=== PATIENT | female | born 1950 | race Caucasian/White ===

== ENCOUNTER 2017-10-28 06:26 | Inpatient (IN) | payer BC ==
[2017-10-16 09:12] LABS: ABSOLUTE EOSINOPHILS 0.1 thou/uL (0.0-0.7); ABSOLUTE LYMPHOCYTES 2.4 thou/uL (0.8-5.3); ABSOLUTE MONOCYTES 0.5 thou/uL (0.0-1.2); ABSOLUTE NEUTROPHILS 3.9 thou/uL (1.6-8.1); BASOPHILS 0.6 %; EOSINOPHILS 1.2 %; HEMATOCRIT 48.6 % (37.0-47.0); HEMOGLOBIN 16.2 gm/dL (12.0-15.0); LYMPHOCYTES 34.1 %; MCH 29.5 pg (26.0-34.0); MCHC 33.3 g/dL (28.0-37.0); MCV 88.4 fL (80.0-100.0); MONOCYTES 7.1 %; MPV 8.5 fl. (7.2-11.1); NUCLEATED RBCS 0 /100WBC; PLATELET COUNT* 226 thou/uL (150-400); RDW-CV 14.6 % (10.5-14.5); WBC 6.9 thou/uL (4.0-11.0)
[2017-10-16 09:39] LABS: ALBUMIN 3.9 g/dL (3.4-5.0); CALCIUM 9.3 mg/dL (8.5-10.1); CREATININE 0.8 mg/dL (0.6-1.3); POTASSIUM 3.8 mmol/L (3.5-5.1); TOTAL BILIRUBIN 0.7 mg/dL (<0.1-1.0); TOTAL PROTEIN 7.3 g/dL (6.4-8.2)
--- NOTE | 2017-10-16 11:33 | EKG ---
[place] [address] ELECTROCARDIOGRAM REPORT Name: ELIER TRAN Room: PRE IN [facility]#: [id number] Admission: Attend Phys: Nuno Barillas Discharge: Date of : 54 Report #: [id number] THIS REPORT FOR: //name// [facility] Test Date: 2017-10-16 Test Time: 09:27:16 Pat Name: ELIER TRAN Department: Room: Gender: F Email Marketing Processor: : 1950 Requested By: Lawrence Pierce Order Number: [id number] Reading MD: Kristian Rios Measurements Intervals [place] Rate: 80 P: 64 WA: 136 QRS: 48 QRSD: 85 T: 51 QT: 346 QTc: 400 Interpretive Statements Sinus rhythm Probable left atrial enlargement Compared to ECG 09/19/2016 10:11:03 No significant changes Electronically Signed On 10-16-2017 11:33:05 CDT by Kristian Rios [email or web address] <ELECTRONICALLY SIGNED> By: Kristian Rios MD, LOCATED WITHIN [facility] 10/16/17 1133 0927 09 Kristian Rios MD, FACC /EPI
[2017-10-17 02:06] LABS: GLYCOHEMOGLOBIN (HGB A1C) 5.4 % (4.8-5.6)
[~2017-10-28] VITALS: Ht 160 cm; Wt 75.7 kg
[~2017-10-28 06:26] MED LIST: ASPIRIN325 PO; C-10001000 M1 PO; CAL MAG ZINC +1 EAC1 PO; CEPHALEXIN 500500 M3 PO; COLACE100 MG PO; DILTIAZEM ER120 M1 PO; FISH OIL 1,001000 M1 PO; HYDROCODONE-AP1 EAC6 PO; METOPROLOL SUCC25 M1 PO; MULTIVITAMINS1 EAC7 PO; NEURONTIN 300300 M1 PO; NORCO 5-325 TA1 EACH PO; NORTRIPTYLINE H10 M1; OXYCODONE HCL 55 MG PO; PERCOCET 5-3251 EACH PO; PERCOCET PO; PRAVACHOL40 MG PO; PRILOSEC 20 MG20 MG PO; RESTASIS1 EACH OP; RESTASIS1 EACH OPHTHALMIC; STOOL SOFTENER1 EAC2 PO; TOPAMAX 25 MG T25 M1 PO; VENTOLIN HFA 1818 GM INH; XARELTO10 MG PO; ZANTAC 150MG T150 MG PO
[2017-10-28 12:35] VITALS: BP 139/85
[2017-10-28 15:40] VITALS: BP 147/81
--- NOTE | 2017-10-28 15:43 | NUR ---
RECIEVED O.T. ORDERS. WILL DEFER TO P.T. AND NURSING AT THIS TIME. PLEASE ORDER FURTHER O.T. SERVICES IF NEEDED.
[2017-10-28 16:02] VITALS: BP 136/49
[2017-10-28 16:20] VITALS: BP 147/81
--- NOTE | 2017-10-28 18:21 | NUR ---
PATIENT ARRIVED TO UNIT AT 1540. ALERT AND ORIENTED X4. IV PATENT AND INFUSING. REQUESTING PAIN MEDICATION UPON ARRIVAL TO UNIT. PO PAIN MEDICATION GIVEN. JING HOSE IN PLACE BILATERALLY. ICE PACKS IN PLACE. CAP-NO IN PLACE. PATIENT HAS BEEN ORIENTED TO ROOM. VSS ON ROOM AIR. HOURLY ROUNDS HAVE BEEN MAINTAINED THROUGHOUT SHIFT. CALL LIGHT IS WITHIN REACH. NURSING WILL CONTINUE TO MONITOR.
--- NOTE | 2017-10-28 18:29 | NUR ---
ALERT AND ORIENTED X4. IV IS PATENT AND INFUSING. PAIN BEING MANAGED WITH PO PAIN MEDICATION. DENIES NAUSEA AT THIS TIME. JING HOSE IN PLACE. CAP-NO IN PLACE. URINATING VIA BEDPAN AT THIS TIME. ICE PACKS IN PLACE. DRESSING C/D/I. VSS ON ROOM AIR. HOURLY ROUNDS HAVE BEEN MAINTAINED THROUGHOUT SHIFT. CALL LIGHT IS WITHIN REACH. NURSING WILL CONTINUE TO MONITOR.
[2017-10-28 20:00] VITALS: BP 142/74
[2017-10-29] VITALS: BP 141/69
[2017-10-29 04:33] VITALS: BP 124/59
[2017-10-29 04:56] LABS: HEMATOCRIT 41.5 % (37.0-47.0); HEMOGLOBIN 13.7 gm/dL (12.0-15.0)
--- NOTE | 2017-10-29 05:24 | NUR ---
ASSESSMENT COMPLETE. PT SLEPT GOOD THROUGH THE NIGHT. PRN PAIN MEDICATION GIVEN NEEDED. DRESSING INTACT. PT HAD JING HOSE ON BILAT LEGS WITH FOOT SCD'S. ICE PACK TO LEFT LEG. IV CEFAZOLIN GIVEN ORDERED. PT USES BEDPAN. IV FLUIDS INFUSING. SEE ASSESSMENT AND VITALS FOR OTHER DETAILS. CALL LIGHT WITHIN REACH, WILL CONTINUE PLAN OF CARE
--- NOTE | 2017-10-29 08:03 | OP ---
[address] [address] OPERATIVE REPORT Name: ELIER TRAN Room: [address] [facility].R.#: [id number] Admission: 10/28/17 Attend Phys: Nuno Barillas Discharge: Date of : 54 Report #: [id number] THIS REPORT FOR: //name// CC: Lawrence Bello DATE OF SERVICE: 10/28/2017 PREOPERATIVE DIAGNOSIS: Severe left tricompartmental osteoarthritis of the knee. POSTOPERATIVE DIAGNOSIS: Severe left tricompartmental osteoarthritis of the knee. SURGERY PERFORMED: Kierra cemented left total knee arthroplasty, size 5 femur, size D tibia, 14 mm polyethylene and 32 mm patella medial congruent. SURGEON: Lawrence Pierce DO. SIDING MECHANIC: Reynaldo Pimentel DO. SECOND STRAW HAT WASHER OPERATOR: Rolando Adhikari DO. ANESTHESIA: General anesthetic and an adductor block. ANTIBIOTICS: The patient did receive Ancef 2 grams IV preoperatively. DRAINS: None. COMPLICATIONS: None. ESTIMATED BLOOD LOSS: 125 mL. GROSS FINDINGS: Prior to surgery, this patient has failed all conservative care measures for osteoarthritis of her knee. The patient intraoperatively, the exam of the bone quality correlated with the x-ray findings, the severe tricompartmental osteoarthritis with eburnated bone multiple osteophytes throughout. Post-placement of that total knee, she had a full stable arc of motion. The patient's motion is 0-120. SURGERY IN DETAIL: The patient was taken to the operating room and placed on the table, given the benefit of a general anesthetic and prior to that preoperative holding, she had an adductor block applied. She underwent Hibiclens scrub and chlorhexidine prep and sterile draping for left knee surgery. Timeout was called and verified to be on her [place] [address] OPERATIVE REPORT Name: ELIER TRAN Room: [address] IN [facility].#: [id number] Admission: 10/28/17 Attend Phys: Nuno Barillas Discharge: Date of : 54 Report #: [id number] The patient surgery began without a tourniquet and I did not inflate tourniquet until we cemented. A midline incision was made with a 10 blade scalpel through skin and subcutaneous tissues, maintaining hemostasis throughout. A second medial parapatellar capsular incision was made next. The patient's patella was everted, knee flexed 90 degrees. Excess osteophytes were removed throughout. Distal femoral drill hole was made in routine fashion. I did go ahead now and after I drilled the femur, a cutting block was applied. The distal cut was made to femur. I did do a 5-degree cut on that femur. I went down to the tibia next using an external guide across the ankle and proximally. With appropriate slope, the cutting block was secured in place and the tibia was cut and a block of bone was removed. The extension block fit quite nicely. Surgery now continued going back to the femoral side where I sized it. It looked like a #5 would be right. We put in a #5 block and made all cuts, the 4-in-1 block and made all cuts. Once this was accomplished, I went down to the tibia side, did remove the excess meniscus on each side to maintain hemostasis to the posterior corners. Sized the tibia to size #D, that tray was secured in place with screws, put the femur in place the #5, did a trial reduction with a 10-mm polyethylene. It fit easily. Surgery continued with drilling the distal femur. We would take in the end of the standard femur size. At this point in time, I used the Kierra reamer to appropriately ream the patella and size it to a 32. The patella was appropriately drilled and the button was applied and it actually did very well through the arc of motion, stable, tracking nicely. Once this was accomplished, I went back to remove the trial 10 and removed the distal femur. I removed patellar button and I Esmarch the extremity and inflated the tourniquet 300 mmHg, appropriately reamed and a cruciform cut was made in the tibia, that trial tray was now removed preparing for cement technique. At this point in time, pulsatile lavage irrigation was next done to prepare the bone for cementing. I did a 1-stage cementing technique, cemented in the tibia, removed excess cement, cemented on the femur, removed the excess cement, compressed her with a 13-mm trial polyethylene and cemented in the patella. We held the leg in extension until cement had hardened. At this point in time, I went ahead and I did 1 more trial reduction with a 14. It actually was more stable yet, so that would be the final polyethylene. At this point in time, I did a pulsatile lavage irrigation of knee, removed any excess debris that might be present within the knee region. I did go ahead and put the polyethylene E liner and seated into the tibia tray with a click noted. The leg was reduced and the leg was placed through motion with a stable arc of motion 0-120. At this point in time, I did a Betadine wash followed with a normal saline wash and TXA solution to the knee. I released the tourniquet and hemostasis was easily maintained. I closed the capsule #1 Vicryl, #1 TiCron [id number] fashion, subcutaneous tissues 2-0 Monocryl followed with stapling of the skin. Mepilex dressing was applied, jackson escalante. She was transferred to the table, [place] [address] OPERATIVE REPORT Name: ELIER TRAN Room: [address] IN [facility].#: [id number] Admission: 10/28/17 Attend Phys: Nuno Barillas Discharge: Date of : 54 Report #: [id number] stable condition. I attest I was present for all critical aspects of surgery. Needle, instrument, sponge counts were correct. <ELECTRONICALLY SIGNED> By: Lawrence Pierce DO 10/29/17 0803 1429 1552Cpatricio Pierce DO /neha
[2017-10-29 08:17] VITALS: BP 147/69
--- NOTE | 2017-10-29 10:03 | NUR ---
ASSUMED CARES OF PT AT 0700. PT IN BED, BED IN LOW LOCKED POSITION, CALL BUTTON AND PERSONAL ITEMS IN PT REACH. PT A&O X4, HRRR PER AUSCULTATION, LCTAB, VSS ON 2L O2 NC/CAPNO. JOHNSON CATH IN PLACE/PATENT WITH CLEAR YELLOW URINE PRESENT. LAST BM YESTERDAY. SKIN INTACT, PERRLA, AFEBRILE. PT UP TOLERATED WITH GAIT BELT/WALKER. THIGH HIGH JING HOSE, SCD'S/FOOT PUMPS IN PLACE/ACTIVE. CPM ON PT AT SHIFT CHANGE. LEFT FA IV PATENT WITH LR INFUSING 75 ML/HR. HR OCC TACHYCARDIC (101) OXY IR SOMEWHAT EFFECTIVE FOR PAIN IN LEFT KNEE. DRESSING ON LEFT KNEE C/D/I. PT PROGRESSING TOWARDS GOAL. HOURLY ROUNDING CONTINUES. WILL CONTINUE TO MONITOR PT STATUS/PROGRESS.
--- NOTE | 2017-10-29 10:22 | NUR ---
SW met with pt to complete initial assessment, introduce self, and SW role. Pt alert, oriented, flat. Pt lives at home with her and dtr can assist if needed. Pt has history with [facility] and pt preference for HH services first choice and OP would be second choice. Pt has all needed DME: RW, toilet riser, shower bench, wc ramp and her house can have a bed set up on main level if needed. CPM in pt room. Pt had right knee replacement in 2017. Pt uses [facility] [place], [place]. Pt PCP Tanika Menchaca MD. Pt did not have any questions or concerns at this time. SW to continue to follow.
[2017-10-29 17:39] VITALS: BP 144/73
--- NOTE | 2017-10-29 19:32 | NUR ---
REPORT TO SALES BROKER FOR CONTINUED CARES. PT IN BED ASLEEP AT SHIFT CHANGE. FLUIDS INFUSING PER MAR IN LEFT FA. PT UP TO THERAPY TODAY/OT/PHYSICAL THERAPY. HOURLY ROUNDING COMPLETED. PT PROGRESSING TOWARDS GOAL.
[2017-10-29 20:57] VITALS: BP 130/76
[2017-10-30] VITALS (7 sets, daily range): BP systolic 124–137; BP diastolic 57–71
[2017-10-30 04:28] LABS: HEMOGLOBIN 12.5 gm/dL (12.0-15.0)
--- NOTE | 2017-10-30 06:38 | NUR ---
PATIENT SLEPT MOST PART OF THE NIGHT. IV FLUIDS CONTINUE TO INFUSE AT 75 ML/HR. PATIENT WAS GIVEN PAIN MEDICINE ABOUT EVERY FOUR HOURS. DRESSING TO LEFT KNEE REMAINS INTACT. WILL CONTINUE TO MONITOR.
--- NOTE | 2017-10-30 13:34 | NUR ---
faxed referral orders to [facility]. patient waiting for insurance approval. possible dc today for pt.
--- NOTE | 2017-10-30 13:59 | NUR ---
spoke with correctional counselor/case manager.pt will not go home today. called and spoke with Ted rowan and informed them of pts status. possible dc tomorrow. anum [phone]
--- NOTE | 2017-10-30 17:32 | NUR ---
PATIENT IS ALERT AND ORIENTED TODAY, VITAL SIGNS STABLE. HAS HAD SOME PAIN THAT IS CONTROLLED WITH ORAL PAIN MEDICATIONS, CHAGED TO NORCO FROM OXY AND THE NAUSEA HAS DECREASED. TOLERATED THERAPY WELL STILL MOVES VERY SLOWLY AND NEEDS ENCOURAGEMENT. HAS BEEN ON CPM TWICE SO FAR TODAY, APPETITE IS GOOD. CALL LIGHT IS IN REACH, WILL CONTINUE TO MONITOR.
[2017-10-31 04:00] VITALS: BP 128/66
[2017-10-31 04:16] VITALS: BP 128/66
--- NOTE | 2017-10-31 05:24 | NUR ---
PATIENT REMAINS ALERT AND ORIENTED X4 THROUGHOUT SHIFT. VITAL SIGNS STABLE ON ROOM AIR. TRANSFERS WITH ASSIST OF ONE TO THE RESTROOM. IV PATENT IN THE LEFT WRIST SALINE LOCKED. REPOSITIONING SELF IN BED. TOLERATING REGULAR DIET. CPM APPLIED PER ORDERS. USING ICE PACKS TO MANAGE PAIN AND SWELLING. PAIN MANAGED WITH PO MEDICATIONS PER ORDERS. DENIES NAUSEA. RESTING COMFORTABLY THROUGHOUT NIGHT. HOURLY ROUNDING COMPLETE. CALL LIGHT WITHIN REACH. NURSING WILL CONTINUE TO MONITOR.
[2017-10-31 08:00] VITALS: BP 126/72
[2017-10-31] MEDS ORDERED: NORCO 5-325 TA1 EACH PO (13:18)
[2017-10-31] MEDS ORDERED: ELIQUIS2.5 MG PO (13:19)
[2017-10-31] MEDS ORDERED: OXYCODONE HCL 55 MG PO (13:19)
--- NOTE | 2017-10-31 13:20 | NUR ---
fAXED PTS ORTHO ORDERS TO [facility].
== END 2017-10-31 16:18 | disposition home health service (06) | DRG 470 ==
LOC: M.PRE 06:26 → M.TBA 10:54 → M.PRE 12:18 → M.ORTHSURG 15:18
PROVIDERS: Orthopaedic Surgery; ADMIT Internal Medicine
PROC: 0SRD0J9 Replacement of Left Knee Joint with Synthetic Substitute, Cemented, Open Approach (ICD-10-PCS; principal; 2017-10-28)
DX: M17.0 Bilateral primary osteoarthritis of knee (principal); I10 Essential (primary) hypertension; K21.9 Gastro-esophageal reflux disease without esophagitis; J45.909 Unspecified asthma, uncomplicated; Z96.651 Presence of right artificial knee joint; Z82.49 Family history of ischemic heart disease and other diseases of the circulatory system; Z90.49 Acquired absence of other specified parts of digestive tract; Z80.8 Family history of malignant neoplasm of other organs or systems